=== PATIENT | male | born 1955 | race Caucasian/White ===

== ENCOUNTER → 2023-07-11 | Outpatient (CLI) | payer SELFPAY ==
--- NOTE | 2023-07-11 09:33 | RAD_ITS ---
INDICATION: DYSFX LUMBAR REGION EXAMINATION/TECHNIQUE: X-RAY - XR Spine Lumbar Min 4 Views: 5V lumbar spine COMPARISON: None. FINDINGS: VERTEBRAE: No fracture or acute compression deformity. Mild chronic anterior compression deformity of T12. Mild diffuse endplate osteophyte formation. No spondylolisthesis. Preservation of the normal lumbar lordosis. Moderate facet arthropathy right L4-L5 and bilateral L5-S1 DISCS: Disc heights are grossly preserved.. INCLUDED ABDOMEN: Large colonic stool burden.. Diffuse aortic atherosclerosis. Right upper quadrant surgical clips. RAD/L/S Spine Min 4 Views IMPRESSION: Large colonic stool burden. Moderate multilevel lower lumbar facet arthropathy with mild diffuse endplate osteophyte formation. Aortic atherosclerosis. Electronically Signed: Bassam Blackwood MD at 18:17 EDT ,
--- NOTE | 2023-07-11 09:35 | RAD_ITS ---
INDICATION: DYSF CERVICAL REGION EXAMINATION/TECHNIQUE: X-RAY - XR Spine Cervical 4 or 5 Views COMPARISON: None. FINDINGS: VERTEBRAE: No fracture or acute compression deformity. Mild straightening of the normal cervical lordosis. Minimal degenerative grade 1 retrolisthesis C5 on C6. Mild diffuse cervical facet arthropathy. Mild bilateral neural foraminal narrowing C5-C6. DISCS: C5-C6 disc height loss. NECK SOFT TISSUES: No prevertebral soft tissue widening. LUNG APICES: Clear. RAD/Cerv Spine 4 or 5 Views IMPRESSION: No evidence of acute fracture or spondylolisthesis. Moderate spondylosis at C5-C6. Electronically Signed: Bassam Blackwood MD at 18:33 EDT ,
== END | disposition home or self-care (01) ==
PROVIDERS: Referring Provider Chiropractor Orthopedic; Visit Provider Chiropractor Orthopedic
DX: M99.01 Segmental and somatic dysfunction of cervical region (principal); M99.03 Segmental and somatic dysfunction of lumbar region
CPT/HCPCS: 72050; 72110